=== PATIENT | female | born 1990 | race Caucasian/White ===

== ENCOUNTER → 2017-10-13 | Outpatient (CLI) | payer OTHER ==
[~2017-10-13] MED LIST: INSU100V14 CINFI; IRON PO; LAMO300T2 PO; LEVO112T2 PO; VITAMIN D3 PO
[2017-10-13 09:55] LABS: ALANINE AMINOTRANSFERASE 27 U/L (12-78); ALBUMIN 4.1 g/dL (3.4-5.0); ANION GAP 6 mmol/L (5-15); CALCIUM 9.1 mg/dL (8.5-10.1); CHLORIDE 109 mmol/L (98-107); CREATININE 0.73 mg/dL (0.55-1.02)
[2017-10-13 09:57] LABS: ALKALINE PHOSPHATASE 55 U/L (45-117); BILIRUBIN,TOTAL 0.3 mg/dL (0.2-1.0); TOTAL PROTEIN 7.8 g/dL (6.4-8.2)
== END | disposition home or self-care (01) ==
LOC: STAR 08:32
PROVIDERS: ATTEND Specialist
DX: Z01.818 Encounter for other preprocedural examination (principal); R16.1 Splenomegaly, not elsewhere classified
CPT/HCPCS: 36415; 80053; 93005

== ENCOUNTER 2017-10-20 05:36 | Day surgery (SDC) | payer OTHER ==
[~2017-10-20] VITALS: Ht 162.6 cm; Wt 67.1 kg
[2017-10-20 06:22] VITALS: BP 119/76
[2017-10-20] MEDS ORDERED: LACTATED RINGERS 1,000 ML IV SCH (06:28)
[2017-10-20] MEDS ORDERED: LIDOCAINE-MPF 1%, 2ML INFIL ONE (06:30)
[2017-10-20] MEDS ORDERED: LIDOCAINE-MPF 1%, 2ML ONE (06:34)
[2017-10-20] MEDS ORDERED: BUPIVACAINE/PF 0.25% ONE (06:46)
[2017-10-20] MEDS ORDERED: EPINEPHRINE 1 MG/ML, 1ML ONE (06:47)
[2017-10-20 06:48] LABS: HCG UR SG 1.035 (1.003-1.030)
[2017-10-20] MEDS ORDERED: GABAPENTIN 300 MG CAPSULE PO ONE (07:00)
[2017-10-20] MEDS ORDERED: ONDANSETRON ODT 8 MG PO ONE (07:00)
[2017-10-20] MEDS ORDERED: OxyconTIN ER 10 MG TAB.ER PO ONE (07:00)
[2017-10-20] MEDS ORDERED: FAMOTIDINE 20 MG TABLET PO ONE (07:00)
[2017-10-20] MEDS ORDERED: ACETAMINOPHEN 500 MG TABLET PO ONE (07:00)
[2017-10-20] MEDS ORDERED: MIDAZOLAM 1 MG/ML, 2ML ONE (07:22)
[2017-10-20] MEDS ORDERED: FENTANYL PF 250 MCG/5ML ONE (07:23)
[2017-10-20] MEDS ORDERED: NEOSTIGMINE 1 MG/ML, 10ML ONE (07:25)
[2017-10-20] MEDS ORDERED: PROPOFOL 10 MG/ML, 20ML ONE (07:25)
[2017-10-20] MEDS ORDERED: DEXAMETHASONE 4 MG/ML, 1ML ONE (07:25)
[2017-10-20] MEDS ORDERED: GLYCOPYRROLATE 0.2MG/1ML, 5ML ONE (07:25)
[2017-10-20] MEDS ORDERED: CEFAZOLIN 1,000 MG ONE (07:25)
[2017-10-20] MEDS ORDERED: ONDANSETRON 2MG/ML, 2ML ONE (07:25)
[2017-10-20] MEDS ORDERED: SUCCINYLCHOLINE 20 MG/ML, 10ML ONE (07:25)
[2017-10-20] MEDS ORDERED: ROCURONIUM 10 MG/ML,10ML ONE (07:46)
[2017-10-20] MEDS ORDERED: LIDOCAINE 4%, 4 ML SYR/CANN TP ONE (07:46)
[2017-10-20] MEDS ORDERED: MEPERIDINE/PF 25MG/0.5ML IVPush PRN (08:30)
[2017-10-20] MEDS ORDERED: OXYcodone 5 MG/5 ML ORAL.SOL UDC PO PRN (08:30)
[2017-10-20] MEDS ORDERED: ONDANSETRON ODT 8 MG PO PRN (08:30)
[2017-10-20] MEDS ORDERED: MORPHINE SULFATE 4 MG/ML, 1ML IVPush PRN (08:30)
[2017-10-20] MEDS ORDERED: PROMETHAZINE 25 MG/ML, 1ML IV PRN (08:30)
[2017-10-20] MEDS ORDERED: FENTANYL PF 100 MCG/2ML IV PRN (08:30)
[2017-10-20] MEDS ORDERED: KETOROLAC 30 MG/1 ML ONE (08:52)
[2017-10-20] MEDS ORDERED: KETOROLAC 30 MG/1 ML IVPush ONE (09:00)
== END 2017-10-20 10:55 ==
LOC: OUT 05:36
PROVIDERS: ATTEND Specialist
DX: Z30.2 Encounter for sterilization (principal); Z79.4 Long term (current) use of insulin; E11.9 Type 2 diabetes mellitus without complications; E03.9 Hypothyroidism, unspecified; Z96.41 Presence of insulin pump (external) (internal); Z98.890 Other specified postprocedural states
CPT/HCPCS: 81025; 82962; 88302; J0171; J0690; J1100; J1885; J2250; J2405; J2704; J2710; J3010; J3490; Q0162; J0330; J7120

== ENCOUNTER 2018-03-01 05:46 | Day surgery (SDC) | payer OTHER ==
[~2018-03-01] VITALS: Ht 160 cm; Wt 64.8 kg
[~2018-03-01 05:46] MED LIST changes: +[UNRECOGNIZED DRUG - OTHER]
[2018-03-01] MEDS ORDERED: LACTATED RINGERS 1,000 ML IV SCH (06:26)
[2018-03-01 06:29] VITALS: BP 122/80
[2018-03-01] MEDS ORDERED: LIDOCAINE-MPF 1%, 2ML INFIL ONE (06:30)
[2018-03-01] MEDS ORDERED: OXYMETAZOLINE NASAL SPRAY 0.05%, 15ML ONE (06:35)
[2018-03-01] MEDS ORDERED: LIDOCAINE 1%-EPI 1:100K, 30ML ONE (06:35)
[2018-03-01] MEDS ORDERED: NEO/BACI/POLY/HC OINT 15GM ONE (06:35)
[2018-03-01 07:22] LABS: ALANINE AMINOTRANSFERASE 15 U/L (12-78); ALBUMIN 3.9 g/dL (3.4-5.0); ANION GAP 7 mmol/L (5-15); CHLORIDE 108 mmol/L (98-107)
[2018-03-01] MEDS ORDERED: MIDAZOLAM 1 MG/ML, 2ML ONE (07:22)
[2018-03-01] MEDS ORDERED: FENTANYL PF 100 MCG/2ML ONE ×2 (07:22→09:34)
[2018-03-01] MEDS ORDERED: LIDOCAINE JELLY 2%, 30GM ONE (07:22)
[2018-03-01 07:24] LABS: ALKALINE PHOSPHATASE 64 U/L (45-117); BILIRUBIN,TOTAL 0.2 mg/dL (0.2-1.0); TOTAL PROTEIN 7.8 g/dL (6.4-8.2)
[2018-03-01] MEDS ORDERED: ACETAMINOPHEN 325 MG TABLET PO PRN (07:30)
[2018-03-01] MEDS ORDERED: ALBUTEROL/IPRATROPIUM 2.5MG/0.5MG, 3 ML NPPB PRN (07:30)
[2018-03-01] MEDS ORDERED: PROMETHAZINE 25 MG SUPP PR PRN (07:30)
[2018-03-01] MEDS ORDERED: OXYcodone 5 MG/5 ML ORAL.SOL UDC PO PRN (07:30)
[2018-03-01] MEDS ORDERED: SCOPOLAMINE PATCH, 1.5MG PATCH.TD72 TD PRN (07:30)
[2018-03-01] MEDS ORDERED: MIDAZOLAM 1 MG/ML, 2ML IV PRN (07:30)
[2018-03-01] MEDS ORDERED: FENTANYL PF 100 MCG/2ML IV PRN (07:30)
[2018-03-01] MEDS ORDERED: LABETALOL 5MG/ML, 20ML IV PRN (07:30)
[2018-03-01] MEDS ORDERED: ONDANSETRON 2MG/ML, 2ML IV PRN (07:30)
[2018-03-01] MEDS ORDERED: PROPOFOL 10 MG/ML, 20ML ONE (07:31)
[2018-03-01] MEDS ORDERED: ONDANSETRON 2MG/ML, 2ML ONE (07:31)
[2018-03-01] MEDS ORDERED: DEXAMETHASONE 4 MG/ML, 1ML ONE (07:31)
[2018-03-01] MEDS ORDERED: KETOROLAC 30 MG/1 ML ONE (07:31)
[2018-03-01 07:39] LABS: HCG UR SG 1.025 (1.003-1.030)
[2018-03-01] MEDS ORDERED: OXYcodone 5 MG/5 ML ORAL.SOL UDC ONE (09:35)
== END 2018-03-01 09:40 | disposition home or self-care (01) ==
LOC: OUT 05:46
PROVIDERS: ATTEND Otolaryngology Facial Plastic Surgery
DX: Z47.2 Encounter for removal of internal fixation device (principal); E11.9 Type 2 diabetes mellitus without complications; Z88.8 Allergy status to other drugs, medicaments and biological substances
CPT/HCPCS: 20670; 80053; 81025; 82962; J1100; J1885; J2250; J2405; J2704; J7120; J3010; J3490